=== PATIENT | male | born 1950 | race Caucasian/White ===

== ENCOUNTER → 2016-05-13 | Outpatient (CLI) | payer MEDICARE, BC | END | disposition home or self-care (01) | LOC: CVU 12:40 | PROVIDERS: ATTEND Internal Medicine Cardiovascular Disease | DX: I48.91 Unspecified atrial fibrillation (principal); I08.1 Rheumatic disorders of both mitral and tricuspid valves | CPT/HCPCS: 93306 ==

== ENCOUNTER → 2016-05-24 | Outpatient (CLI) | payer MEDICARE, BC ==
[~2016-05-24] MED LIST: REGADENOSON 0.4 MG/5 ML SYRINGE ONE
== END | disposition home or self-care (01) ==
LOC: CFH 12:02
PROVIDERS: ATTEND Internal Medicine Cardiovascular Disease
DX: Z01.818 Encounter for other preprocedural examination (principal); I48.91 Unspecified atrial fibrillation; I42.9 Cardiomyopathy, unspecified
CPT/HCPCS: 78452; 93017; A9502; J2785

== ENCOUNTER 2016-08-12 10:38 | Inpatient (IN) | payer MEDICARE, BC ==
[~2016-08-12] VITALS: Ht 177.8 cm; Wt 72.6 kg
[2016-08-12 11:46] VITALS: BP 111/64
[2016-08-12] MEDS ORDERED: GABA300C10 PO (12:09)
[2016-08-12] MEDS ORDERED: ASPI-621 PO (12:09)
[2016-08-12] MEDS ORDERED: ATOR40TA PO (12:09)
[2016-08-12] MEDS ORDERED: CARV6.2512 PO (12:09)
[2016-08-12] MEDS ORDERED: RIVA20TA PO (12:09)
[2016-08-12] MEDS ORDERED: SODIUM CHLORIDE 0.9% 1,000 ML IV SCH (12:11)
[2016-08-12] MEDS ORDERED: LABETALOL 5MG/ML 40ML VIAL IVPush PRN (12:30)
[2016-08-12] MEDS ORDERED: ONDANSETRON 2MG/ML, 2ML IVPush PRN (12:30)
[2016-08-12] MEDS ORDERED: DILTIAZEM 5 MG/ML, 5ML IVPush ONE (12:30)
[2016-08-12] MEDS ORDERED: PANTOPRAZOLE 80 MG in SODIUM CHLORIDE 0.9% 100 ML IV SCH (12:30)
[2016-08-12] MEDS ORDERED: ONDANSETRON ODT 4 MG PO PRN (12:30)
[2016-08-12] MEDS ORDERED: DILTIAZEM 125 MG in SODIUM CHLORIDE 0.9% 100 ML IV PRN (12:30)
[2016-08-12 13:26] VITALS: BP 101/67
[2016-08-12 13:35] LABS: BLOOD UREA NITROGEN 49 mg/dL (7-18)
[2016-08-12 13:48] LABS: ASPARTATE AMINO TRANSFERASE 27 U/L (15-37)
[2016-08-12] MEDS: GABAPENTIN 300 MG CAPSULE PO SCH ×2 (15:34→20:19)
[2016-08-12] MEDS: D5%-0.9% NACL 1,000 ML IV SCH (17:23)
[2016-08-12] MEDS: morphine SULFATE 10 MG/ML, 1ML IVPush PRN (18:23)
[2016-08-12 19:54] VITALS: BP 100/64
[2016-08-12] MEDS: ATORVASTATIN 40 MG TABLET PO SCH (20:19)
[2016-08-12] MEDS: PANTOPRAZOLE 80 MG in SODIUM CHLORIDE 0.9% 100 ML IV SCH (21:52)
[2016-08-13 03:41] VITALS: BP 107/70
[2016-08-13] MEDS: D5%-0.9% NACL 1,000 ML IV SCH ×2 (04:30→12:48)
[2016-08-13 06:43] LABS: BLOOD UREA NITROGEN 28 mg/dL (7-18)
[2016-08-13 07:57] VITALS: BP 105/69
[2016-08-13] MEDS: PANTOPRAZOLE 80 MG in SODIUM CHLORIDE 0.9% 100 ML IV SCH ×2 (08:32→17:41)
[2016-08-13] MEDS ORDERED: FENTANYL PF 100 MCG/2ML ONE (09:02)
[2016-08-13] MEDS ORDERED: MIDAZOLAM 1 MG/ML, 5ML ONE (09:02)
[2016-08-13 10:22] VITALS: BP 110/66
[2016-08-13] MEDS: GABAPENTIN 300 MG CAPSULE PO SCH ×3 (10:24→21:13)
[2016-08-13] MEDS: CARVEDILOL 6.25 MG TABLET PO SCH ×2 (10:24→21:13)
[2016-08-13] MEDS: morphine SULFATE 10 MG/ML, 1ML IVPush PRN ×2 (11:05→15:02)
[2016-08-13] MEDS ORDERED: EPINEPHRINE SYRINGE 0.1 MG/ML, 10ML ONE (13:38)
[2016-08-13 15:21] VITALS: BP 111/71
[2016-08-13] MEDS: SODIUM CHLORIDE 0.9% 1,000 ML IV SCH (15:30)
[2016-08-13 19:09] VITALS: BP 117/79
[2016-08-13] MEDS: ATORVASTATIN 40 MG TABLET PO SCH (21:13)
[2016-08-14] MEDS: PANTOPRAZOLE 80 MG in SODIUM CHLORIDE 0.9% 100 ML IV SCH ×3 (03:15→22:41)
[2016-08-14 03:16] VITALS: BP 125/86
[2016-08-14] MEDS: CARVEDILOL 6.25 MG TABLET PO SCH ×2 (05:00→17:11)
[2016-08-14] MEDS: SODIUM CHLORIDE 0.9% 1,000 ML IV SCH (05:00)
[2016-08-14 05:51] LABS: BLOOD UREA NITROGEN 12 mg/dL (7-18)
[2016-08-14 07:50] VITALS: BP 116/77
[2016-08-14] MEDS: TAMSULOSIN 0.4 MG CAP.ER.24H PO SCH (09:44)
[2016-08-14] MEDS: GABAPENTIN 300 MG CAPSULE PO SCH ×3 (09:44→21:13)
[2016-08-14] MEDS: morphine SULFATE 10 MG/ML, 1ML IVPush PRN (09:58)
[2016-08-14] MEDS: HYDROcodone/APAP 5/325 TABLET PO PRN ×2 (12:51→18:26)
[2016-08-14 15:32] VITALS: BP 99/65
[2016-08-14 18:00] VITALS: BP 102/68
[2016-08-14] MEDS ORDERED: TRAZODONE 50MG TABLET PO ONE (20:30)
[2016-08-14 21:01] VITALS: BP 131/84
[2016-08-14] MEDS: ATORVASTATIN 40 MG TABLET PO SCH (21:13)
[2016-08-15] VITALS (7 sets, daily range): BP systolic 100–197; BP diastolic 64–121
[2016-08-15] MEDS: CARVEDILOL 6.25 MG TABLET PO SCH ×2 (05:36→17:42)
[2016-08-15] MEDS: PANTOPRAZOLE 80 MG in SODIUM CHLORIDE 0.9% 100 ML IV SCH (05:55)
[2016-08-15 07:01] LABS: BLOOD UREA NITROGEN 13 mg/dL (7-18)
[2016-08-15] MEDS ORDERED: POTASSIUM CHLORIDE 20 MEQ TAB.ER.PRT PO ONE (07:30)
[2016-08-15] MEDS: TAMSULOSIN 0.4 MG CAP.ER.24H PO SCH (10:12)
[2016-08-15] MEDS: GABAPENTIN 300 MG CAPSULE PO SCH ×3 (10:12→22:06)
[2016-08-15] MEDS: OMEPRAZOLE 20 MG CAPSULE.DR PO SCH ×2 (10:12→22:06)
[2016-08-15] MEDS: SODIUM CHLORIDE 0.9% 500 ML IV SCH ×2 (10:13→13:00)
[2016-08-15] MEDS: HYDROcodone/APAP 5/325 TABLET PO PRN ×2 (16:36→22:06)
[2016-08-15] MEDS: CARVEDILOL 12.5 MG TABLET PO SCH (18:47)
[2016-08-15] MEDS: ATORVASTATIN 40 MG TABLET PO SCH (22:05)
[2016-08-16] VITALS (12 sets, daily range): BP systolic 94–128; BP diastolic 63–82
[2016-08-16] MEDS: HYDROcodone/APAP 5/325 TABLET PO PRN ×2 (02:15→18:21)
[2016-08-16 06:04] LABS: BLOOD UREA NITROGEN 13 mg/dL (7-18)
[2016-08-16] MEDS: CARVEDILOL 12.5 MG TABLET PO SCH ×2 (08:37→18:21)
[2016-08-16] MEDS: TAMSULOSIN 0.4 MG CAP.ER.24H PO SCH (08:37)
[2016-08-16] MEDS: OMEPRAZOLE 20 MG CAPSULE.DR PO SCH ×2 (08:37→20:21)
[2016-08-16] MEDS: GABAPENTIN 300 MG CAPSULE PO SCH ×3 (08:37→20:21)
[2016-08-16] MEDS ORDERED: FENTANYL PF 100 MCG/2ML ONE (11:04)
[2016-08-16] MEDS ORDERED: MIDAZOLAM 1 MG/ML, 5ML ONE (11:04)
[2016-08-16] MEDS: FLUCONAZOLE 100 MG TABLET PO SCH (12:21)
[2016-08-16] MEDS: SODIUM CHLORIDE 0.9% 1,000 ML IV SCH (18:21)
[2016-08-16] MEDS: ATORVASTATIN 40 MG TABLET PO SCH (20:21)
[2016-08-16] MEDS ORDERED: HYDROcodone/APAP 5/325 TABLET PO ONE (21:00)
[2016-08-17 03:09] VITALS: BP 130/82
[2016-08-17 05:00] LABS: ASPARTATE AMINO TRANSFERASE 19 U/L (15-37); BLOOD UREA NITROGEN 9 mg/dL (7-18)
[2016-08-17] MEDS: CARVEDILOL 12.5 MG TABLET PO SCH ×2 (06:33→17:21)
[2016-08-17 08:08] VITALS: BP 132/88
[2016-08-17] MEDS: HYDROcodone/APAP 5/325 TABLET PO PRN ×2 (08:59→17:21)
[2016-08-17] MEDS: TAMSULOSIN 0.4 MG CAP.ER.24H PO SCH (09:00)
[2016-08-17] MEDS: GABAPENTIN 300 MG CAPSULE PO SCH (09:00)
[2016-08-17] MEDS: OMEPRAZOLE 20 MG CAPSULE.DR PO SCH ×2 (09:00→21:29)
[2016-08-17] MEDS: FLUCONAZOLE 100 MG TABLET PO SCH (09:00)
[2016-08-17] MEDS ORDERED: SODIUM CHLORIDE NASAL SPRAY 45ML BOTTLE NAS PRN (09:30)
[2016-08-17 15:00] VITALS: BP 118/78
[2016-08-17] MEDS: GABAPENTIN 400 MG CAPSULE PO SCH ×2 (17:21→21:29)
[2016-08-17 18:58] VITALS: BP 113/77
[2016-08-17] MEDS: SODIUM CHLORIDE 0.9% 1,000 ML IV SCH (21:29)
[2016-08-17] MEDS: ATORVASTATIN 40 MG TABLET PO SCH (21:29)
[2016-08-18 01:21] VITALS: BP 120/78
[2016-08-18] MEDS: HYDROcodone/APAP 5/325 TABLET PO PRN ×4 (01:24→23:27)
[2016-08-18 05:22] VITALS: BP 134/86
[2016-08-18] MEDS: CARVEDILOL 12.5 MG TABLET PO SCH ×2 (05:23→18:00)
[2016-08-18 06:20] LABS: ASPARTATE AMINO TRANSFERASE 14 U/L (15-37); BLOOD UREA NITROGEN 9 mg/dL (7-18)
[2016-08-18 06:35] VITALS: BP 115/76
[2016-08-18] MEDS: GABAPENTIN 400 MG CAPSULE PO SCH ×3 (07:40→20:19)
[2016-08-18] MEDS: OMEPRAZOLE 20 MG CAPSULE.DR PO SCH ×2 (07:40→20:19)
[2016-08-18] MEDS: TAMSULOSIN 0.4 MG CAP.ER.24H PO SCH (07:40)
[2016-08-18] MEDS: FLUCONAZOLE 100 MG TABLET PO SCH (07:40)
[2016-08-18 13:25] VITALS: BP 130/84
[2016-08-18] MEDS: SODIUM CHLORIDE 0.9% 1,000 ML IV SCH (15:08)
[2016-08-18 20:18] VITALS: BP 115/80
[2016-08-18] MEDS: ATORVASTATIN 40 MG TABLET PO SCH (20:19)
[2016-08-19 01:48] VITALS: BP 106/66
[2016-08-19 05:30] VITALS: BP 120/74
[2016-08-19] MEDS: CARVEDILOL 12.5 MG TABLET PO SCH (05:31)
[2016-08-19 06:15] LABS: ASPARTATE AMINO TRANSFERASE 16 U/L (15-37); BLOOD UREA NITROGEN 7 mg/dL (7-18)
[2016-08-19 07:46] VITALS: BP 111/78
[2016-08-19] MEDS: TAMSULOSIN 0.4 MG CAP.ER.24H PO SCH (08:17)
[2016-08-19] MEDS: FLUCONAZOLE 100 MG TABLET PO SCH (08:17)
[2016-08-19] MEDS: GABAPENTIN 400 MG CAPSULE PO SCH (08:17)
[2016-08-19] MEDS: OMEPRAZOLE 20 MG CAPSULE.DR PO SCH (08:17)
[2016-08-19] MEDS: HYDROcodone/APAP 5/325 TABLET PO PRN (11:01)
[2016-08-19] MEDS ORDERED: TAMS-11 PO (11:45)
[2016-08-19] MEDS ORDERED: ALPR0.254 PO (11:45)
[2016-08-19] MEDS ORDERED: OMEP-110 PO (11:45)
[2016-08-19] MEDS ORDERED: FLUC100T PO (11:47)
[2016-08-19] MEDS ORDERED: GABA-827 PO (13:09)
[2016-08-19] MEDS ORDERED: CARV12.543 PO (13:09)
[2016-08-19] MEDS ORDERED: HYDR-3240 PO (13:26)
== END 2016-08-19 15:07 | disposition home or self-care (01) | DRG 380 ==
LOC: 5SO 11:43
PROVIDERS: ADMIT Hospitalist; ATTEND Hospitalist
PROC: 30233N1 Transfusion of Nonautologous Red Blood Cells into Peripheral Vein, Percutaneous Approach (ICD-10-PCS; 2016-08-13)
PROC: 0W3P8ZZ Control Bleeding in Gastrointestinal Tract, Via Natural or Artificial Opening Endoscopic (ICD-10-PCS; 2016-08-13)
PROC: 0DB68ZX Excision of Stomach, Via Natural or Artificial Opening Endoscopic, Diagnostic (ICD-10-PCS; principal; 2016-08-13 09:00)
PROC: 0DJ08ZZ Inspection of Upper Intestinal Tract, Via Natural or Artificial Opening Endoscopic (ICD-10-PCS; 2016-08-16)
DX: K31.5 Obstruction of duodenum (principal); K25.4 Chronic or unspecified gastric ulcer with hemorrhage; B37.81 Candidal esophagitis; D68.69 Other thrombophilia; I42.9 Cardiomyopathy, unspecified; K26.4 Chronic or unspecified duodenal ulcer with hemorrhage; I48.91 Unspecified atrial fibrillation; B02.9 Zoster without complications; D64.9 Anemia, unspecified; G62.9 Polyneuropathy, unspecified; E78.5 Hyperlipidemia, unspecified; R33.9 Retention of urine, unspecified; Z79.899 Other long term (current) drug therapy; Z86.19 Personal history of other infectious and parasitic diseases; Z87.11 Personal history of peptic ulcer disease; Z95.5 Presence of coronary angioplasty implant and graft; Z79.82 Long term (current) use of aspirin; I48.0 Paroxysmal atrial fibrillation
CPT/HCPCS: 36415; 76700; 80048; 80053; 80061; 82040; 82140; 83690; 83735; 84100; 84443; 85014; 85018; 85025; 85610; 86850; 86900; 86923; 87324; 88305; 88342; 99152; 99153; J2250; J3010; J7042; A4648; C9113; G0461; J2270; J7030; J7040; P9016